=== PATIENT | female | born 1980 | race Caucasian/White ===

== ENCOUNTER 2017-10-07 14:16 | Day surgery (SDC) | payer MEDICAID, OTHER ==
[~2017-10-07] VITALS: Ht 162.6 cm; Wt 86.7 kg
[2017-10-07] MEDS ORDERED: NO MEDS (15:21)
[2017-10-07] MEDS ORDERED: PROPOFOL 60 ML ONE (16:06)
[2017-10-07] MEDS ORDERED: LIDOCAINE 100 MG SYRINGE ONE (16:06)
[2017-10-07 16:11] VITALS: BP 120/93; PULSE 80; RESP 15
--- NOTE | 2017-10-07 16:32 | OPPN ---
Date/Time of Note Date/Time of Note DATE: 10/07/17 TIME: 16:30 Operative Report Preoperative Diagnosis Rectal bleeding Change in bowel habit Postoperative Diagnosis Small sigmoid polyp was removed Internal and external hemorrhoids Operation/Procedure Performed Colonoscopy and biopsy Surgeon see signature line operations manager assistant None Anesthesia: MAC Estimated blood loss: none Transfusion Required none Specimen Sigmoid polyp biopsy Grafts/Implants none Complications none GELACIO PARKER MD Oct 07, 2017 16:32
[2017-10-07 16:51] VITALS: BP 104/56; PULSE 66; RESP 20
--- NOTE | 2017-10-07 20:11 | GILP ---
DATE OF PROCEDURE: NAME OF PROCEDURE: Colonoscopy and biopsy. SURGEON: Gelacio Parker MD PREOPERATIVE DIAGNOSES: 1. Rectal bleeding. 2. Change in bowel habit. POSTOPERATIVE DIAGNOSES 1. Colonoscopy all the way to the cecum. 2. Small sigmoid polyp was removed using biopsy forceps. 3. Internal and external hemorrhoids. INDICATION FOR THE PROCEDURE: Ms. Kim Bella is a 37-year-old female patient who had change i n the bowel habit associated with rectal bleeding. The patient was scheduled for colonoscopy for fu rther evaluation. The procedure and possible complications were well explained to the patient. The patient understood and consented to the procedure. DESCRIPTION OF PROCEDURE: Under the influence of anesthesia, the colonoscope was carefully introduc ed in the rectum, and under direct vision, it was advanced all the way to the cecum. FINDINGS: Patient had a small sigmoid colon polyp, and it was removed using biopsy forceps. She mckeon d internal and external hemorrhoids. She tolerated the procedure very well, and there was no complications from the procedure. At the en d of the procedure, she was awake with stable vital signs, and she was discharged home to the care o f her family. IMPRESSION: Please see postoperative diagnoses. PLAN: 1. Trulance 3 mg p.o. daily for constipation. 2. Lidocaine ointment in and around the anus for rectal pain. 3. Sitz bath. 4. If the pain and bleeding continues, consider hemorrhoidectomy. Dictated By: GELACIO MARSHALL/DOREEN Conf#: [id number] DID#: [id number] CC: GELACIO PARKER MD;*End*
== END 2017-10-07 16:40 | disposition home or self-care (01) ==
LOC: GIL 14:16
PROVIDERS: ATTEND Internal Medicine Gastroenterology
DX: R19.4 Change in bowel habit (principal); D12.5 Benign neoplasm of sigmoid colon; K64.4 Residual hemorrhoidal skin tags; K64.8 Other hemorrhoids; E66.9 Obesity, unspecified; Z68.32 Body mass index [BMI] 32.0-32.9, adult
CPT/HCPCS: 45380; 84703; 88305; J2001; Z7610